=== PATIENT | female | born 1950 | race Two or more races ===

== ENCOUNTER → 2018-10-28 | Emergency (ER) | payer MEDICARE, OTHER ==
[~2018-10-28] VITALS: Ht 162.6 cm; Wt 87.5 kg
[~2018-10-28] MED LIST: VANCOMYCIN 1 GM VIAL ONE; VANCOMYCIN 1 GM in IV D5W 250 ML IV ONE
--- NOTE | 2018-10-28 19:45 | NUR ---
TO BED 1 AMBULATORY C/O L LEG REDNESS WITH SWELLING AND BURNING. PT REPORTS VASCULAR SURGERY VALVE REPAIR 10/15/18. PT AAOX4 NO ACUTE DISTRESS NOTED, RESP EVEN AND UNLABORED. PLACE PT ON CARDIAC MONITORING, CONTINUOUS POX. PENDING ER MD SEQUEIRA.
--- NOTE | 2018-10-28 19:48 | NUR ---
[facility] AT BEDSIDE TO [facility] RUDOLPH.
--- NOTE | 2018-10-28 20:13 | NUR ---
PT MEDICATED ORDERED.
[2018-10-28 20:14] LABS: BASOPHILS # (AUTO) 0.1 /CMM (0.0-0.2); BASOPHILS % (AUTO) 1.1 % (0.0-2.0); EOSINOPHILS % (AUTO) 5.7 % (0.0-6.0); HEMATOCRIT 36 % (33-45); HEMOGLOBIN 12.3 g/dL (11.5-14.8); LYMPHOCYTES # (AUTO) 1.8 /CMM (0.8-4.8); LYMPHOCYTES % (AUTO) 25.4 % (20.0-44.0); MEAN CORPUSCULAR HGB CONC 34 g/dl (31.0-36.0); MEAN CORPUSCULAR VOLUME 88 fL (82-100); MONOCYTES # (AUTO) 0.9 /CMM (0.1-1.30); MONOCYTES % (AUTO) 12.7 % (2.0-12.0); NEUTROPHILS # (AUTO) 3.9 /CMM (1.8-8.9); NEUTROPHILS % (AUTO) 55.1 % (43.0-81.0); PLATELET COUNT (AUTO) 289 /CMM (150-450); RED BLOOD CELL COUNT(AUTO) 4.07 MIL/uL (4.0-5.2); WHITE BLOOD COUNT (AUTO) 7.1 K/uL (4.3-11.0)
[2018-10-28 20:21] LABS: CREATININE 0.7 mg/dL (0.6-1.3); POTASSIUM 3.8 mmol/L (3.5-5.1)
[2018-10-28 20:27] LABS: ALBUMIN 3.3 g/dL (3.4-5.0); BILIRUBIN,DIRECT 0.1 mg/dL (0.0-0.2); BILIRUBIN,TOTAL 0.2 mg/dL (0.2-1.0); TOTAL PROTEIN, SERUM 7.2 g/dL (6.4-8.2)
--- NOTE | 2018-10-28 20:45 | NUR ---
LLE DUPLEX DONE.
--- NOTE | 2018-10-28 20:53 | NUR ---
INITIAL DUPLEX VENOUS LWR EXT LEFT SHOWED POSITIVE FOR THROMBUS AT GSV LEVEL. ADVISED ATTENDING RN (ED) OF PRELIMINARY FINDINGS.
--- NOTE | 2018-10-28 21:08 | NUR ---
[facility] TALKING TO PT REGARDING LAB AND DUPLEX RESULT.
--- NOTE | 2018-10-28 21:34 | NUR ---
IV removed. Catheter intact and site benign. Pressure and 4x4 applied to site. No bleeding noted. Patient discharged to home in stable condition. Written and verbal after care instructions given. Patient verbalizes understanding of instruction. ambulatory with a steady gait noted.
[2018-10-28 21:35] VITALS: BP 125/78
== END | disposition home or self-care (01) ==
LOC: ER 19:12
DX: I80.3 Phlebitis and thrombophlebitis of lower extremities, unspecified (principal); L03.116 Cellulitis of left lower limb; I10 Essential (primary) hypertension; E03.9 Hypothyroidism, unspecified
CPT/HCPCS: 36415; 80048; 80076; 85025; 85730; 87040 ×2; 93971; 96365; 99284; J3370